=== PATIENT | female | born 1990 | race Caucasian/White ===

== ENCOUNTER 2020-08-06 08:10 | Emergency (ER) | payer OTHER, SELFPAY ==
[2020-08-06 08:16] VITALS: BP 128/76; PULSE 90; RESP 16; TEMP 36.8; O2SAT 98; BMI 26.4
--- NOTE | 2020-08-06 08:24 | ED_ITS ---
HPI - General Adult General Chief complaint: General Medical Stated complaint: shaky after heroin withdrawal Time Seen by Provider: 08/06/20 08:16 History of Present Illness HPI narrative: This is a 29 years old female with history of poly substance abuse including on heroin and cocaine and alcohol presented by ambulance complaining of withdrawal syndrome. She deny SI. She is homeless. Onset (ago): hour(s) (2) Severity: moderate Relieving factors: none Exacerbating factors: none Associated symptoms: denies other symptoms Related Data Previous Rx's Medication Instructions Recorded ondansetron HCl [Zofran] 4 mg PO Q8H PRN #14 tab 08/06/20 Allergies Allergy/AdvReac Type Severity Reaction Status Date / Time From VICODIN Allergy Unknown NAUSEATED Uncoded 01/20/20 17:58 SEAFOOD Allergy Unknown ANAPHYLAXIS Uncoded 01/20/20 17:58 Review of Systems Review of Systems: Denies any fever, chills, abdominal pain, chest pain, shortness of breath Yes all other systems are reviewed and are negative PMFSH Past Medical History Medical History Substance abuse Social History Social History Use of substances other than those prescribed or required for medical reasons: Yes Substance Use Type: Crack/Cocaine and Heroin Last Used Substance: Hours (ago) Advance Directives: No Advance Directives Information Provided: No Physical Exam Vital Signs: Vital Signs: Last Vital Signs Temp 98.2 F 08/06/20 08:16 Pulse 90 08/06/20 08:16 Resp 16 08/06/20 08:16 BP 128/76 08/06/20 08:16 Pulse Ox 98 08/06/20 08:16 Body Mass Index 26.4 Const: Other: On examination he is in mild distress Orientation/consciousness: oriented to person, oriented to place, oriented to time and patient oriented x3 HENMT: Head: Yes normal to inspection Eyes: General: appearance normal, both eyes and all related structures Neck: Neck: Yes normal visual inspection, Yes full ROM and Yes no lymphadenopathy Chest: Chest palpation & inspection: normal inspection of the chest Resp: Auscultation: clear to auscultation bilaterally Cardio: Jugular venous distension: no JVD Rate: regular rate GI: Inspection: Yes normal to inspection Palpation (GI): not soft, not firm, nontender and no guarding Skin: General skin exam: no rashes or lesions noted, elasticity normal and turgor normal Neuro: General: oriented to person, oriented to place, oriented to time and patient oriented x3 Course Reevaluation(s) Reevaluation #1: Patient is feeling well she is tolerating p.o. well at this time a she was seen by the cross country/track and field coach, she was given appropriate phone number for detox, she denies SI. At this time we could discharge the patient ho ut with detox list Time: 11:33 Medical Decision Making Lab Data Result diagrams: 08/06/20 09:15 08/06/20 09:15 Labs: Lab Results 08/06/20 08/06/20 Range/Units 09:15 09:15 WBC 13.5 H (4.8-10.8) X10*3/uL RBC 4.34 (4.20-5.50) X10*6/uL Hgb 12.1 (12.0-16.0) g/dl Hct 37.7 (37-47) % MCV 86.9 (80-98) fL MCH 27.9 (27.0-33.0) pg MCHC 32.1 (31.0-35.0) g/dl RDW 16.3 H (11.0-16.0) % Plt Count 272 (160-400) X10*3/uL MPV 10.2 (9.4-12.3) fL Immature Gran % (Auto) 0.6 H (0.0-0.4) % Neut % (Auto) 82.0 H (45-73) % Lymph % (Auto) 9.3 L (20-40) % Iron % (Auto) 7.6 (2-11) % Eos % (Auto) 0.2 (0-4) % Baso % (Auto) 0.3 (0-2) % Lymph # (Auto) 1.3 (1.2-4.9) X10*3/uL Iron # (Auto) 1.0 (0.1-1.2) X10*3/uL Eos # (Auto) 0.0 (0.0-0.4) X10*3/uL Baso # (Auto) 0.0 (0.0-0.2) X10*3/uL Abs Immat Gran (auto) 0.08 H (0.00-0.03) X10*3/uL Absolute Neuts (auto) 11.1 H (2.0-8.3) X10*3/uL Absolute Nucleated RBC 0.000 (0.0-0.012) X10*3/uL Nucleated RBC % (auto) 0.0 (0.0-0.2) /100WBC Sodium 139 (135-145) mmol/L Potassium 3.8 (3.3-5.1) mmol/L Chloride 101 (96-108) mmol/L Carbon Dioxide 27 (22-29) mmol/L Anion Gap 15 (12-20) BUN 7 L (9-16) mg/dL Creatinine 0.66 (0.5-1.4) mg/dL Estim Creat Clear Calc 109.3 Estimated GFR > 60 Random Glucose 88 (60-115) mg/dL Calcium 9.1 (8.4-10.2) mg/dL Total Bilirubin 0.7 (0.0-1.0) mg/dL AST 34 H (5-31) U/L ALT 25 (0-31) U/L Alkaline Phosphatase 88 (39-117) U/L Total Protein 7.3 (6.5-8.0) g/dL Albumin 4.2 (3.5-5.0) g/dL Discharge Plan Discharge Clinical Impression: Withdrawal syndrome, Drug abuse, opioid type, Cocaine abuse with cocaine- induced disorder Patient Disposition: Home, Self-Care Instructions: Opioid Withdrawal (ED) Additional Instructions: Please follow-up with primary care physician, return if worse, liquid diet today Prescriptions: New ondansetron HCl [Zofran] 4 mg tablet 4 mg PO Q8H PRN (Reason: nausea and vomiting) Qty: 14 RF: 0 Interventions: ED Discharge Assessment Last Done: 08/06/20 11:50 Discharge Date/Time: 08/06/20 12:14
[2020-08-06] MEDS: diazePAM 5 MG TABLET PO (08:45)
[2020-08-06] MEDS: 0.9 % Sodium Chloride 1,000 ML 999 ML IVCONT (09:09)
[2020-08-06] MEDS: ondansetron HCL 4 MG/2 ML VIAL IVPUSH (09:14)
[2020-08-06] MEDS: LORazepam 2 MG/ML VIAL 1 MG IVPUSH (09:14)
[2020-08-06 09:20] LABS: MANUAL DIFF FLAG NO
[2020-08-06 09:23] LABS: Basophils Percent Auto 0.3 % (0-2); Eosinophils Percent Auto 0.2 % (0-4); Hematocrit 37.7 % (37-47); Hemoglobin 12.1 g/dl (12.0-16.0); Imm Gran Abs Auto 0.08 X10*3/uL (0.00-0.03); Imm Gran Pct Auto 0.6 % (0.0-0.4); Lymphocytes Absolute Auto 1.3 X10*3/uL (1.2-4.9); Lymphocytes Percent Auto 9.3 % (20-40); Mean Corpuscular HGB Conc 32.1 g/dl (31.0-35.0); Mean Corpuscular Hemoglobin 27.9 pg (27.0-33.0); Mean Corpuscular Volume 86.9 fL (80-98); Mean Platelet Volume 10.2 fL (9.4-12.3); Monocytes Percent Auto 7.6 % (2-11); Neutrophils Absolute Auto 11.1 X10*3/uL (2.0-8.3); Platelet Count 272 X10*3/uL (160-400); Red Blood Count 4.34 X10*6/uL (4.20-5.50); Red Cell Distribution Width 16.3 % (11.0-16.0); White Blood Count 13.5 X10*3/uL (4.8-10.8)
[2020-08-06 09:51] LABS: Alanine Aminotransferase 25 U/L (0-31); Albumin Level 4.2 g/dL (3.5-5.0); Alkaline Phosphatase 88 U/L (39-117); Anion Gap 15 (12-20); Aspartate Amino Transferase 34 U/L (5-31); Bilirubin Total 0.7 mg/dL (0.0-1.0); Blood Urea Nitrogen 7 mg/dL (9-16); Calcium 9.1 mg/dL (8.4-10.2); Carbon Dioxide 27 mmol/L (22-29); Chloride 101 mmol/L (96-108); Creatinine Clr Calc Pharmacy 109.3; Estimated Glomerular Filt Rate > 60; Glucose Random 88 mg/dL (60-115); Potassium 3.8 mmol/L (3.3-5.1); Sodium 139 mmol/L (135-145); Total Protein 7.3 g/dL (6.5-8.0)
--- NOTE | 2020-08-06 10:08 | MHC.CARE ---
0930: Pt consult, pt is seeking detox for polysubstance abuse. Pt was in bed at the time we met, resting. Pt intermittently dozed during our conversation, suddenly sleeping mid sentence. This appeared to be less out of being tired and more related to the drug use the evening before. It appeared as though she was still under the influence. Pt, when coherent, was very specific with what she was seeking. Pt stated she wanted detox for her drug and alcohol use and advised me that she was presently feeling withdrawal symptoms. Pt stated that she had been consuming alcohol since the age of 9 and consumes a Pint and a half of jhonathan daily. Pt reports that she is not an every day heroin user but is an every day drug user, using crack, cocaine or heroin depending on the day and what she can get. Pt is agreeable to going to detox and having counseling. Recovery resources provided. A referral to [facility] has been placed.
--- NOTE | 2020-08-06 10:53 | PC.NURSE ---
pt sleeping at this time. resp even and unlabored
[2020-08-06 14:36] LABS: CT PCR NOT DETECTED (Not Detect.); NG PCR NOT DETECTED (Not Detect.)
== END 2020-08-06 12:14 | disposition home or self-care (01) ==
PROVIDERS: Emergency Provider Emergency Medicine
DX: F11.13 Opioid abuse with withdrawal (principal); F14.13 Cocaine abuse, unspecified with withdrawal; F10.10 Alcohol abuse, uncomplicated; Y90.9 Presence of alcohol in blood, level not specified; Z59.0 Homelessness
CPT/HCPCS: 36415; 80053; 85025; 87491; 87591; 96361; 96374; 96375; 99284; 99285; J2060; J2405